=== PATIENT | male | born 1980 | race Caucasian/White ===

== ENCOUNTER 2022-01-28 14:25 | Emergency (ER) | payer MEDICAID, OTHER ==
[~2022-01-28] VITALS: Ht 177.8 cm; Wt 77.0 kg
[2022-01-28] MEDS ORDERED: LORAZEPAM 2MG/ML CPJ IM ONE (15:00)
[2022-01-28] MEDS ORDERED: OLANZAPINE 10 MG/VIAL IM ONE (15:00)
[2022-01-28 15:05] LABS: HEMATOCRIT. 40.9 % (42.0-52.0); HEMOGLOBIN. 14.1 g/dL (14.0-18.0); MEAN CORPUSCULAR HEMOGLOBIN 30.3 pg (28.0-32.0); MEAN CORPUSCULAR VOLUME 87.8 fL (80.0-94.0); MEAN PLATELET VOLUME 6.7 fl (7.4-10.4); PLATELET 270 x1000/uL (130-400); RED BLOOD CELL COUNT 4.66 mill/uL (4.7-6.1); RED CELL DISTRIBUTION WIDTH 13.6 % (11.6-14.6)
[2022-01-28] MEDS ORDERED: SODIUM CHLORIDE 0.9% 1,000 ML IV ONE (15:15)
[2022-01-28 15:16] LABS: CHLORIDE 97 mEq/L (98-107)
[2022-01-28 15:22] LABS: *AMPHETAMINES SCREEN URINE PRESUMTIVE POSITIVE (NEGATIVE); *BARBITURATES SCREEN URINE NEGATIVE (NEGATIVE); *BENZODIAZEPINES SCREEN URINE NEGATIVE (NEGATIVE); *COCAINE SCREEN URINE NEGATIVE (NEGATIVE); CANNABINOID URINE SCREEN NEGATIVE (NEGATIVE); METHADONE URINE SCREEN NEGATIVE (NEGATIVE); OPIATES URINE SCREEN NEGATIVE (NEGATIVE); PHENCYCLIDINE URINE SCREEN NEGATIVE (NEGATIVE)
[2022-01-28 15:25] LABS: ETHANOL BLOOD < 10 mg/dL
[2022-01-28 20:02] LABS: PLATELET ESTIMATE NORMAL
[2022-01-29] MEDS: QUETIAPINE FUMARATE 50MG TABLET PO SCH ×2 (09:45→21:37)
[2022-01-29] MEDS: FLUOXETINE HCL 10 MG CAPSULE PO SCH (09:45)
[2022-01-30 06:37] LABS: CHLORIDE 102 mEq/L (98-107)
[2022-01-30 06:40] LABS: BASOPHILS % 0.5 % (0.0-2.0); EOSINOPHILS % 2.8 % (0.0-5.0); HEMATOCRIT. 41.8 % (42.0-52.0); HEMOGLOBIN. 14.3 g/dL (14.0-18.0); LYMPHOCYTES % 27.6 % (20.0-50.0); MEAN CORPUSCULAR VOLUME 87.5 fL (80.0-94.0); MEAN PLATELET VOLUME 6.5 fl (7.4-10.4); MONOCYTES % 13.3 % (2.0-8.0); NEUTROPHILS % 55.8 % (40.0-76.0); PLATELET 261 x1000/uL (130-400); RED BLOOD CELL COUNT 4.77 mill/uL (4.7-6.1); RED CELL DISTRIBUTION WIDTH 13.7 % (11.6-14.6)
[2022-01-30] MEDS: QUETIAPINE FUMARATE 50MG TABLET PO SCH (09:23)
[2022-01-30] MEDS: FLUOXETINE HCL 10 MG CAPSULE PO SCH (09:23)
[2022-01-30 13:51] VITALS: BP 100/65
== END 2022-01-30 16:44 ==
LOC: ER 14:28 → EDBD 14:28 → ER 01-30 16:44
DX: F15.229 Other stimulant dependence with intoxication, unspecified (principal); R45.851 Suicidal ideations; F22 Delusional disorders; F20.9 Schizophrenia, unspecified; F31.9 Bipolar disorder, unspecified; Z75.1 Person awaiting admission to adequate facility elsewhere; Z20.822 Contact with and (suspected) exposure to COVID-19
CPT/HCPCS: 36415; 71045; 80053; 80305; 80307; 80320; 80329; 83605; 85025; 87426; 96372; 99285; C9803; J2060; J3490; J7030; U0003; U0005; Z7610; G0480